=== PATIENT | male | born 1965 | race Caucasian/White ===

== ENCOUNTER 2016-10-02 11:58 | Emergency (ER) | payer MEDICAID ==
[2015-07-06 09:51] VITALS: BMI 25.1
[~2016-10-02 11:58] MED LIST: BACTRIM DS TABL1 TAB PO; CYCLOBENZAPRINE10 MG PO; MULTIPLE VITAMI1 TA1 PO; NORCO 7.5/325 T1 TA1 PO; ZOCOR20 MG PO
[2016-10-02 13:50] LABS: BASOPHILS 0.2 % (0.0-2.0); EOSINOPHILS 1.9 % (0-7); HEMATOCRIT 41.2 % (42.0-54.0); HEMOGLOBIN 13.7 g/dL (13.5-17.5); IMMATURE GRANULOCYTES 0.2 % (0-5); LYMPHOCYTES 25.1 % (15-50); MCHC 33.3 g/dL (31.0-37.0); MCV 90.4 fL (80.0-100.0); MEAN PLATELET VOLUME 10.6 fL (7.4-10.4); MONOCYTES 6.7 % (2-11); NEUTROPHILS 65.9 % (40-80); PLATELET COUNT 261 10x3/uL (130-400); RBC 4.56 10x6/uL (4.20-6.10); RDW 13.5 % (11.5-14.5); WBC 12.3 10x3/uL (4.8-10.8)
[2016-10-02 14:15] LABS: ALBUMIN 4.1 g/dL (3.4-5.0); ALKALINE PHOSPHATASE 83 U/L (46-116); ALT (SGPT) 29 U/L (10-68); BILIRUBIN - TOTAL 0.34 mg/dL (0.2-1.3); CALC OSMOLALITY 282 mosm/kg (275-300); CALCIUM 8.7 mg/dL (8.5-10.1); CHLORIDE - SERUM 103 mmol/L (98-107); CREATININE - SERUM 0.8 mg/dL (0.6-1.3); GLUCOSE 135 mg/dL (74-106); POTASSIUM - SERUM 4.2 mmol/L (3.5-5.1); SODIUM 139 mmol/L (136-145); UREA NITROGEN 20 mg/dL (7-18); eGFR NON AFRICAN AMERICAN > 90 mL/min (90-120)
[2016-10-02 14:31] LABS: CREATINE KINASE 194 UL (21-232); PRO BNP 55 pg/mL (0-125)
[2016-10-02 14:32] LABS: TROPONIN-I < 0.017 ng/mL (0.000-0.060)
== END 2016-10-02 15:36 | disposition home or self-care (01) ==
LOC: D.ER 11:58
PROVIDERS: Family Medicine
DX: R07.9 Chest pain, unspecified (principal); R07.89 Other chest pain; E78.5 Hyperlipidemia, unspecified; F17.200 Nicotine dependence, unspecified, uncomplicated

== ENCOUNTER 2017-03-13 12:10 | Emergency (ER) | payer MEDICAID ==
[2015-07-06 09:51] VITALS: BMI 25.1
== END 2017-03-13 16:25 | disposition home or self-care (01) ==
LOC: D.ER 12:10
DX: S39.012A Strain of muscle, fascia and tendon of lower back, initial encounter (principal); X50.0XXA Overexertion from strenuous movement or load, initial encounter; Y93.89 Activity, other specified; Y92.89 Other specified places as the place of occurrence of the external cause; F17.200 Nicotine dependence, unspecified, uncomplicated; R11.10 Vomiting, unspecified

== ENCOUNTER 2017-07-12 10:00 | Emergency (ER) | payer MEDICAID ==
[2015-07-06 09:51] VITALS: BMI 25.1
== END 2017-07-12 11:06 | disposition home or self-care (01) ==
LOC: D.ER 10:00
DX: R07.89 Other chest pain (principal); F17.200 Nicotine dependence, unspecified, uncomplicated; F12.90 Cannabis use, unspecified, uncomplicated